=== PATIENT | male | born 1995 | race Caucasian/White ===

== ENCOUNTER 2018-04-28 10:26 | Emergency (ER) | payer OTHER ==
[~2018-04-28] VITALS: Ht 177.8 cm; Wt 102.0 kg
[2018-04-28] MEDS ORDERED: IBUPROFEN 800 MG TABLET PO ONE (11:00)
[2018-04-28 14:02] VITALS: BP 111/67
== END 2018-04-28 14:03 | disposition home or self-care (01) ==
LOC: EMS 10:28
DX: M25.562 Pain in left knee (principal); J45.909 Unspecified asthma, uncomplicated
CPT/HCPCS: 29505; 99284